=== PATIENT | female | born 1970 | race Caucasian/White ===

== ENCOUNTER 2021-07-10 19:51 | Emergency (ER) | payer OTHER ==
[2021-07-10] MEDS ORDERED: Dextrose 50% Abboject 50 ML SYRINGE ONE (20:08)
[2021-07-10 20:13] LABS: #Eosinphils 0.1 10x3/uL (0.0-0.5); #Neutrophils 3.6 10x3/uL (1.5-8.4); %Basophils 0.6 % (0.0-2.0); %Eosinophils 1.4 % (0.0-6.0); %Lymphocytes 32.5 % (18.0-47.0); %Monocytes 13.7 % (0.0-10.0); %Neutrophils 51.4 % (40.0-75.0); Mean Corpuscular HGB CONC 31.3 g/dL (32.0-36.0); Mean Corpuscular Hemoglobin 30.8 pg (27.0-33.0); Mean Corpuscular Volume 98.5 fl (81.6-98.3); Mean Platelet Volume 10.2 fl (7.4-10.4); Platelet Count 233 10x3/uL (150-450); RBC Distribution Width 16.3 % (11.5-14.5); Red Blood Cell (RBC) Count 3.89 10x6/uL (3.90-5.03); White Blood Cell (WBC) Count 7.1 10x3/uL (3.5-10.5)
[2021-07-10 20:24] LABS: ALT (SGPT) 18 U/L (8-55); AST (SGOT) 19 U/L (5-34); Albumin 4.4 g/dL (3.5-5.0); Alkaline Phosphatase 58 U/L (40-110); Anion Gap 22 mmol/L (10-20); BUN (Urea Nitrogen) 67 mg/dL (9.8-20.1); Bilirubin, Total 0.4 mg/dL (0.2-1.2); Calc. Creatinine Clearance 0 mL/min (70-130); Calcium 10.3 mg/dL (7.8-10.44); Carbon Dioxide 24 mmol/L (22-29); Chloride 99 mmol/L (98-107); Globulin 3.9 g/dL (2.4-3.5); Potassium 4.5 mmol/L (3.5-5.1); Protein, Total 8.3 g/dL (6.0-8.3); Sodium 140 mmol/L (136-145)
[2021-07-10 21:08] LABS: Glucose 43 mg/dL (70-105)
[2021-07-10] MEDS ORDERED: Acetaminophen 500 MG TAB ONE (22:02)
[2021-07-10] MEDS ORDERED: Divalproex Sodium 250 MG (DR) TAB ONE (22:02)
== END 2021-07-10 23:41 | disposition home or self-care (01) ==
LOC: CSHERS 19:51
DX: R56.9 Unspecified convulsions (principal); S00.83XA Contusion of other part of head, initial encounter; E11.40 Type 2 diabetes mellitus with diabetic neuropathy, unspecified; I10 Essential (primary) hypertension; J45.909 Unspecified asthma, uncomplicated; Z87.891 Personal history of nicotine dependence; W19.XXXA Unspecified fall, initial encounter; Z86.73 Personal history of transient ischemic attack (TIA), and cerebral infarction without residual deficits
CPT/HCPCS: 36416; 70450; 71045; 80053; 84484; 85025; 93005; 96374

== ENCOUNTER 2021-07-18 09:35 | Emergency (ER) | payer OTHER ==
[2021-07-18 12:22] LABS: #Eosinphils 0.1 10x3/uL (0.0-0.5); #Monocytes 0.5 10x3/uL (0.0-1.1); #Neutrophils 5.6 10x3/uL (1.5-8.4); %Basophils 0.4 % (0.0-2.0); %Eosinophils 1.4 % (0.0-6.0); %Lymphocytes 18.8 % (18.0-47.0); %Monocytes 6.8 % (0.0-10.0); %Neutrophils 72.2 % (40.0-75.0); Hemoglobin 10.8 g/dL (12.0-15.5); Mean Corpuscular HGB CONC 31.8 g/dL (32.0-36.0); Mean Corpuscular Hemoglobin 30.8 pg (27.0-33.0); Mean Corpuscular Volume 96.9 fl (81.6-98.3); Mean Platelet Volume 9.5 fl (7.4-10.4); Platelet Count 191 10x3/uL (150-450); RBC Distribution Width 14.9 % (11.5-14.5); Red Blood Cell (RBC) Count 3.51 10x6/uL (3.90-5.03); White Blood Cell (WBC) Count 7.7 10x3/uL (3.5-10.5)
[2021-07-18] MEDS ORDERED: traMADol HCl 50 MG TAB ONE (12:24)
[2021-07-18 12:45] LABS: Albumin 4.1 g/dL (3.5-5.0); Alkaline Phosphatase 50 U/L (40-110); Anion Gap 18 mmol/L (10-20); BUN (Urea Nitrogen) 70 mg/dL (9.8-20.1); Bilirubin, Total 0.4 mg/dL (0.2-1.2); Calc. Creatinine Clearance 0 mL/min (70-130); Calcium 8.6 mg/dL (7.8-10.44); Carbon Dioxide 21 mmol/L (22-29); Chloride 102 mmol/L (98-107); Globulin 3.1 g/dL (2.4-3.5); Glucose 67 mg/dL (70-105); Potassium 4.4 mmol/L (3.5-5.1); Protein, Total 7.2 g/dL (6.0-8.3); Sodium 137 mmol/L (136-145)
[2021-07-18 12:46] LABS: ALT (SGPT) 6 U/L (8-55); AST (SGOT) 16 U/L (5-34)
== END 2021-07-18 18:35 ==
LOC: CSHERS 09:35
DX: R56.9 Unspecified convulsions (principal); S00.12XA Contusion of left eyelid and periocular area, initial encounter; S00.11XA Contusion of right eyelid and periocular area, initial encounter; M54.50 Low back pain, unspecified; E11.40 Type 2 diabetes mellitus with diabetic neuropathy, unspecified; I10 Essential (primary) hypertension; Z86.73 Personal history of transient ischemic attack (TIA), and cerebral infarction without residual deficits; J45.909 Unspecified asthma, uncomplicated; Z87.891 Personal history of nicotine dependence; Z79.82 Long term (current) use of aspirin; Z79.899 Other long term (current) drug therapy; W05.0XXA Fall from non-moving wheelchair, initial encounter
CPT/HCPCS: 36416; 70450; 72100; 72125; 80053; 85025

== ENCOUNTER 2021-07-31 10:30 | Emergency (ER) | payer OTHER ==
[2021-07-31] MEDS ORDERED: Bacitracin 1 PK ONE (11:29)
== END 2021-07-31 14:04 | disposition home or self-care (01) ==
LOC: CSHERS 10:30
DX: S00.81XA Abrasion of other part of head, initial encounter (principal); S60.411A Abrasion of left index finger, initial encounter; S60.413A Abrasion of left middle finger, initial encounter; S60.512A Abrasion of left hand, initial encounter; R56.9 Unspecified convulsions; I12.0 Hypertensive chronic kidney disease with stage 5 chronic kidney disease or end stage renal disease; N18.6 End stage renal disease; E11.22 Type 2 diabetes mellitus with diabetic chronic kidney disease; E78.5 Hyperlipidemia, unspecified; Z86.73 Personal history of transient ischemic attack (TIA), and cerebral infarction without residual deficits; I73.9 Peripheral vascular disease, unspecified; Z87.891 Personal history of nicotine dependence; I25.10 Atherosclerotic heart disease of native coronary artery without angina pectoris; W05.0XXA Fall from non-moving wheelchair, initial encounter
CPT/HCPCS: 70450

== ENCOUNTER 2021-08-12 22:02 | Emergency (ER) | payer OTHER ==
[2021-08-12] MEDS ORDERED: Ondansetron ODT 4 MG TAB ONE (22:54)
[2021-08-12 23:03] LABS: Phosphorus 4.3 mg/dL (2.3-4.7)
[2021-08-12 23:09] LABS: ALT (SGPT) 16 U/L (8-55); AST (SGOT) 20 U/L (5-34); Albumin 3.9 g/dL (3.5-5.0); Alkaline Phosphatase 56 U/L (40-110); Anion Gap 17 mmol/L (10-20); BUN (Urea Nitrogen) 45 mg/dL (9.8-20.1); Bilirubin, Total 0.3 mg/dL (0.2-1.2); Calc. Creatinine Clearance 0 mL/min (70-130); Calcium 10.3 mg/dL (7.8-10.44); Carbon Dioxide 24 mmol/L (22-29); Chloride 99 mmol/L (98-107); Globulin 3.7 g/dL (2.4-3.5); Glucose 151 mg/dL (70-105); Magnesium 2.5 mg/dL (1.6-2.6); Potassium 3.9 mmol/L (3.5-5.1); Protein, Total 7.6 g/dL (6.0-8.3); Sodium 136 mmol/L (136-145)
[2021-08-12 23:13] LABS: #Eosinphils 0.2 10x3/uL (0.0-0.5); #Monocytes 0.6 10x3/uL (0.0-1.1); #Neutrophils 3.3 10x3/uL (1.5-8.4); %Basophils 0.5 % (0.0-2.0); %Eosinophils 2.5 % (0.0-6.0); %Lymphocytes 31.1 % (18.0-47.0); %Monocytes 10.6 % (0.0-10.0); %Neutrophils 55.1 % (40.0-75.0); Hemoglobin 10.1 g/dL (12.0-15.5); Mean Corpuscular HGB CONC 32.4 g/dL (32.0-36.0); Mean Corpuscular Hemoglobin 31.6 pg (27.0-33.0); Mean Corpuscular Volume 97.5 fl (81.6-98.3); Mean Platelet Volume 10.4 fl (7.4-10.4); Platelet Count 168 10x3/uL (150-450); RBC Distribution Width 14.4 % (11.5-14.5)
[2021-08-12] MEDS ORDERED: HYDROcodone/Acetaminophen 5/325 mg Tablet ONE (23:39)
== END 2021-08-13 00:40 ==
LOC: CSHERS 22:02
DX: S01.81XA Laceration without foreign body of other part of head, initial encounter (principal); R56.9 Unspecified convulsions; W05.0XXA Fall from non-moving wheelchair, initial encounter; I12.0 Hypertensive chronic kidney disease with stage 5 chronic kidney disease or end stage renal disease; E11.22 Type 2 diabetes mellitus with diabetic chronic kidney disease; N18.6 End stage renal disease; E78.5 Hyperlipidemia, unspecified; I25.10 Atherosclerotic heart disease of native coronary artery without angina pectoris; Z99.2 Dependence on renal dialysis; Z87.891 Personal history of nicotine dependence; Z79.82 Long term (current) use of aspirin; Z79.4 Long term (current) use of insulin
CPT/HCPCS: 12014; 36415; 70450; 80053; 83735; 84100; 85025; 93005; Q0162

== ENCOUNTER 2021-08-15 07:57 | Emergency (ER) | payer OTHER ==
[2021-08-15 08:42] LABS: #Eosinphils 0.1 10x3/uL (0.0-0.5); #Monocytes 0.9 10x3/uL (0.0-1.1); #Neutrophils 6.9 10x3/uL (1.5-8.4); %Basophils 0.4 % (0.0-2.0); %Eosinophils 1.1 % (0.0-6.0); %Lymphocytes 15.5 % (18.0-47.0); %Monocytes 9.8 % (0.0-10.0); %Neutrophils 72.9 % (40.0-75.0); Hemoglobin 10.9 g/dL (12.0-15.5); Mean Corpuscular HGB CONC 31.4 g/dL (32.0-36.0); Mean Corpuscular Hemoglobin 30.6 pg (27.0-33.0); Mean Corpuscular Volume 97.5 fl (81.6-98.3); Mean Platelet Volume 9.8 fl (7.4-10.4); Platelet Count 193 10x3/uL (150-450); RBC Distribution Width 14.6 % (11.5-14.5); Red Blood Cell (RBC) Count 3.56 10x6/uL (3.90-5.03); White Blood Cell (WBC) Count 9.4 10x3/uL (3.5-10.5)
[2021-08-15 08:58] LABS: Acetaminophen Less than 6.0 mcg/mL (10.0-30.0); Alcohol Less than 10 mg/dL (Less than 10); Salicylate Less than 8.0 mg/dL (15.0-30.0)
[2021-08-15 08:59] LABS: ALT (SGPT) 13 U/L (8-55); AST (SGOT) 15 U/L (5-34); Albumin 4.2 g/dL (3.5-5.0); Alkaline Phosphatase 56 U/L (40-110); Anion Gap 19 mmol/L (10-20); BUN (Urea Nitrogen) 59 mg/dL (9.8-20.1); Bilirubin, Total 0.4 mg/dL (0.2-1.2); Calc. Creatinine Clearance 0 mL/min (70-130); Calcium 10.1 mg/dL (7.8-10.44); Carbon Dioxide 24 mmol/L (22-29); Chloride 102 mmol/L (98-107); Globulin 3.6 g/dL (2.4-3.5); Glucose 124 mg/dL (70-105); Potassium 4.1 mmol/L (3.5-5.1); Protein, Total 7.8 g/dL (6.0-8.3); Sodium 141 mmol/L (136-145)
== END 2021-08-15 11:35 | disposition home or self-care (01) ==
LOC: CSHERS 07:57
DX: G40.909 Epilepsy, unspecified, not intractable, without status epilepticus (principal); I12.0 Hypertensive chronic kidney disease with stage 5 chronic kidney disease or end stage renal disease; N18.6 End stage renal disease; I25.10 Atherosclerotic heart disease of native coronary artery without angina pectoris; Z86.73 Personal history of transient ischemic attack (TIA), and cerebral infarction without residual deficits; I73.9 Peripheral vascular disease, unspecified; E78.5 Hyperlipidemia, unspecified; Z87.891 Personal history of nicotine dependence
CPT/HCPCS: 70450; 80053; 80307; 85025; 93005

== ENCOUNTER 2021-09-27 21:02 | Inpatient (IN) | payer OTHER ==
[2021-09-27 22:21] LABS: #Monocytes 0.9 10x3/uL (0.0-1.1); #Neutrophils 6.2 10x3/uL (1.5-8.4); %Basophils 0.4 % (0.0-2.0); %Eosinophils 0.3 % (0.0-6.0); %Lymphocytes 21.5 % (18.0-47.0); %Monocytes 9.9 % (0.0-10.0); %Neutrophils 67.5 % (40.0-75.0); Hemoglobin 9.6 g/dL (12.0-15.5); Mean Corpuscular HGB CONC 31.5 g/dL (32.0-36.0); Mean Corpuscular Hemoglobin 31.5 pg (27.0-33.0); Mean Platelet Volume 10.3 fl (7.4-10.4); Platelet Count 142 10x3/uL (150-450); Red Blood Cell (RBC) Count 3.05 10x6/uL (3.90-5.03); White Blood Cell (WBC) Count 9.2 10x3/uL (3.5-10.5)
[2021-09-27 22:37] LABS: ALT (SGPT) 7 U/L (8-55); AST (SGOT) 13 U/L (5-34); Albumin 3.6 g/dL (3.5-5.0); Alkaline Phosphatase 46 U/L (40-110); Anion Gap 19 mmol/L (10-20); BUN (Urea Nitrogen) 57 mg/dL (9.8-20.1); Bilirubin, Total 0.7 mg/dL (0.2-1.2); Calc. Creatinine Clearance 0 mL/min (70-130); Calcium 9.1 mg/dL (7.8-10.44); Carbon Dioxide 22 mmol/L (22-29); Chloride 101 mmol/L (98-107); Globulin 3.6 g/dL (2.4-3.5); Glucose 159 mg/dL (70-105); Potassium 4.4 mmol/L (3.5-5.1); Protein, Total 7.2 g/dL (6.0-8.3); Sodium 138 mmol/L (136-145)
[2021-09-28] MEDS ORDERED: Cefepime 2 GM VIAL ONE (02:59)
[2021-09-28 04:08] LABS: SARS-CoV-2 NAA Rapid Test DETECTED (NotDetected)
[2021-09-28] MEDS ORDERED: Dexamethasone 10 MG/ML VIAL ONE (04:33)
[2021-09-28] MEDS ORDERED: Senokot S 8.6-50 MG TAB PO PRN (05:08)
[2021-09-28] MEDS ORDERED: Dextrose 5% in Water 1,000 ML IV PRN (05:08)
[2021-09-28] MEDS ORDERED: Calcium Carbonate 500 MG ChewTAB PO PRN (05:08)
[2021-09-28] MEDS ORDERED: Acetaminophen 325 MG TAB PO PRN (05:08)
[2021-09-28] MEDS ORDERED: Dextrose 50% Abboject 50 ML SYRINGE SLOW IVP PRN (05:08)
[2021-09-28] MEDS ORDERED: Ondansetron PF 4 MG/2 ML Vial IVP PRN (05:08)
[2021-09-28] MEDS ORDERED: Guaifenesin DM 100-10/5 ML UDCUP PO PRN (05:08)
[2021-09-28] MEDS ORDERED: Pharmacy to Dose ABX/VANCOMYCIN IVPB PRN (05:24)
[2021-09-28] MEDS ORDERED: Piperacillin/Tazobactam 3.375 GM in Sodium Chloride 0.9% 100 ML IVPB SCH ×5 (06:15→20:00)
[2021-09-28] MEDS ORDERED: HOLD VANCOMYCIN FOR LEVEL >20 FS SCH (06:45)
[2021-09-28] MEDS ORDERED: Vancomycin Sliding Scale 1 EACH FS ONE (06:45)
[2021-09-28] MEDS ORDERED: Vancomycin HCl 750 MG in Sodium Chloride 0.9% 250 ML 250 ML IVPB SCH (06:45)
[2021-09-28] MEDS ORDERED: Vancomycin HCl 1 GM in Sodium Chloride 0.9% 250 ML 250 ML IVPB SCH (06:45)
[2021-09-28] MEDS ORDERED: Vancomycin HCl 1.5 GM in Sodium Chloride 0.9% 250 ML 300 ML IVPB SCH (06:45)
[2021-09-28] MEDS ORDERED: Vancomycin HCl 1.25 GM in Sodium Chloride 0.9% 250 ML 250 ML IVPB SCH (06:45)
[2021-09-28] MEDS ORDERED: Vancomycin 1 GM in Premix Bag 1 BAG IVPB SCH ×2 (06:45→09:00)
[2021-09-28] MEDS: Carvedilol 12.5 MG TAB PO SCH ×2 (08:40→21:31)
[2021-09-28] MEDS: Multivitamin W/ Minerals 1 TAB PO SCH (08:40)
[2021-09-28] MEDS: Atorvastatin Calcium 40 MG TAB PO SCH (08:40)
[2021-09-28] MEDS: Sevelamer Carbonate 800 MG TAB PO SCH ×3 (08:40→21:30)
[2021-09-28] MEDS: Aspirin 81 mg Enteric Coated Tablet PO SCH (08:40)
[2021-09-28 08:44] LABS: Legionella Urinary Ag Negative (Negative); Strep pneumo Urine Ag NEGATIVE (NEGATIVE)
[2021-09-28] MEDS: Lantus 1000 UNITS/10 ML VIAL SC SCH (09:14)
[2021-09-28] MEDS: Heparin 5,000 UNITS/ML VIAL SC SCH ×3 (10:38→21:00)
[2021-09-28 12:21] VITALS: BMI 45.6
[2021-09-28] MEDS: HumaLOG 300 UNITS/3 ML VIAL SC PRN (12:59)
[2021-09-28] MEDS ORDERED: Heparin 10,000 UNITS/ 10 ML VIAL SLOW IVP PRN (13:47)
[2021-09-28] MEDS ORDERED: EPOETIN ALFA-EPBX (ESRD) 3,000 UNIT/ML VIAL IVP SCH (14:00)
[2021-09-28] MEDS ORDERED: Heparin 10,000 UNITS/ 10 ML VIAL CATH SCH (22:00)
[2021-09-29] MEDS: Piperacillin/Tazobactam 3.375 GM in Sodium Chloride 0.9% 100 ML IVPB SCH ×2 (02:00→13:05)
[2021-09-29] MEDS: Atorvastatin Calcium 40 MG TAB PO SCH (08:28)
[2021-09-29] MEDS: Heparin 5,000 UNITS/ML VIAL SC SCH ×3 (08:28→21:55)
[2021-09-29] MEDS: Sevelamer Carbonate 800 MG TAB PO SCH ×3 (08:29→16:56)
[2021-09-29] MEDS: HumaLOG 300 UNITS/3 ML VIAL SC PRN ×4 (08:29→21:22)
[2021-09-29] MEDS: Lantus 1000 UNITS/10 ML VIAL SC SCH (08:29)
[2021-09-29] MEDS: Dexamethasone 4 mg/ml Vial SLOW IVP SCH (08:30)
[2021-09-29] MEDS: Aspirin 81 mg Enteric Coated Tablet PO SCH (08:30)
[2021-09-29] MEDS: Carvedilol 12.5 MG TAB PO SCH ×2 (08:30→16:56)
[2021-09-29] MEDS: Multivitamin W/ Minerals 1 TAB PO SCH (08:30)
[2021-09-29 10:18] LABS: #Monocytes 0.5 10x3/uL (0.0-1.1); #Neutrophils 4.1 10x3/uL (1.5-8.4); %Basophils 0.3 % (0.0-2.0); %Eosinophils 0.3 % (0.0-6.0); %Lymphocytes 17.5 % (18.0-47.0); %Monocytes 9.3 % (0.0-10.0); %Neutrophils 72.1 % (40.0-75.0); Hemoglobin 9.2 g/dL (12.0-15.5); Mean Corpuscular HGB CONC 31.8 g/dL (32.0-36.0); Mean Corpuscular Hemoglobin 31.6 pg (27.0-33.0); Mean Corpuscular Volume 99.3 fl (81.6-98.3); Mean Platelet Volume 10.4 fl (7.4-10.4); Platelet Count 148 10x3/uL (150-450); RBC Distribution Width 15.6 % (11.5-14.5); Red Blood Cell (RBC) Count 2.91 10x6/uL (3.90-5.03); White Blood Cell (WBC) Count 5.7 10x3/uL (3.5-10.5)
[2021-09-29 10:31] LABS: Anion Gap 18 mmol/L (10-20); BUN (Urea Nitrogen) 48 mg/dL (9.8-20.1); Calc. Creatinine Clearance 21 mL/min (70-130); Calcium 8.7 mg/dL (7.8-10.44); Carbon Dioxide 22 mmol/L (22-29); Chloride 103 mmol/L (98-107); Glucose 247 mg/dL (70-105); Potassium 4.4 mmol/L (3.5-5.1); Sodium 139 mmol/L (136-145)
[2021-09-29] MEDS ORDERED: Sodium Chloride 0.9% 100 ML ONE (13:01)
[2021-09-30 05:09] LABS: Anion Gap 19 mmol/L (10-20); BUN (Urea Nitrogen) 61 mg/dL (9.8-20.1); Calc. Creatinine Clearance 18 mL/min (70-130); Calcium 8.1 mg/dL (7.8-10.44); Carbon Dioxide 23 mmol/L (22-29); Chloride 100 mmol/L (98-107); Glucose 180 mg/dL (70-105); Sodium 138 mmol/L (136-145)
[2021-09-30 05:15] LABS: Vancomycin, Random 20.8 ug/mL (See Comment)
[2021-09-30] MEDS: Atorvastatin Calcium 40 MG TAB PO SCH (08:34)
[2021-09-30] MEDS: Dexamethasone 4 mg/ml Vial SLOW IVP SCH (08:34)
[2021-09-30] MEDS: Multivitamin W/ Minerals 1 TAB PO SCH (08:34)
[2021-09-30] MEDS: Sevelamer Carbonate 800 MG TAB PO SCH ×3 (08:34→16:46)
[2021-09-30] MEDS: Heparin 5,000 UNITS/ML VIAL SC SCH ×2 (08:34→14:11)
[2021-09-30] MEDS: Carvedilol 12.5 MG TAB PO SCH ×2 (08:34→16:46)
[2021-09-30] MEDS: Aspirin 81 mg Enteric Coated Tablet PO SCH (08:34)
[2021-09-30] MEDS: Lantus 1000 UNITS/10 ML VIAL SC SCH (08:56)
[2021-09-30] MEDS: HumaLOG 300 UNITS/3 ML VIAL SC PRN ×2 (08:56→16:47)
[2021-09-30] MEDS ORDERED: Ventolin HFA Inhaler 60 PUFF INHALER INH PRN (10:36)
[2021-09-30] MEDS ORDERED: Nitroglycerin 0.4 MG TAB (25 Tab Bottle) SL PRN (10:36)
[2021-09-30] MEDS: Acetaminophen/Codeine 30-300mg Tablet PO PRN ×2 (11:13→16:46)
[2021-09-30 13:49] VITALS: BP 107/57; TEMP 97.9
[2021-09-30] MEDS: Calcium Acetate 667 MG CAP PO SCH ×2 (14:11→16:46)
[2021-09-30] MEDS ORDERED: GABAPENTIN 800 MG PO SCH (15:00)
[2021-09-30] MEDS ORDERED: Gabapentin 400 MG CAP PO SCH (15:00)
[2021-09-30] MEDS: Piperacillin/Tazobactam 3.375 GM in Sodium Chloride 0.9% 100 ML IVPB SCH (16:45)
[2021-09-30] MEDS ORDERED: Divalproex Sodium 250 MG (DR) TAB PO SCH (21:00)
[2021-10-01] MEDS ORDERED: Clopidogrel Bisulfate 75 MG TAB PO SCH (09:00)
[2021-10-01] MEDS ORDERED: Furosemide 40 MG TAB PO SCH (09:00)
== END 2021-09-30 17:55 | DRG 177 ==
LOC: CSHERS 21:02 → CSHTELE 09-28 05:47
PROVIDERS: ADMIT Family Medicine; ATTEND Internal Medicine
PROC: 8E0ZXY6 Isolation (ICD-10-PCS; 2021-09-28)
PROC: 5A1D70Z Performance of Urinary Filtration, Intermittent, Less than 6 Hours Per Day (ICD-10-PCS; 2021-09-28)
PROC: 3E0333Z Introduction of Anti-inflammatory into Peripheral Vein, Percutaneous Approach (ICD-10-PCS; principal; 2021-09-29)
DX: U07.1 COVID-19 (principal); J18.1 Lobar pneumonia, unspecified organism; N18.6 End stage renal disease; J96.01 Acute respiratory failure with hypoxia; Z68.42 Body mass index [BMI] 45.0-49.9, adult; I12.0 Hypertensive chronic kidney disease with stage 5 chronic kidney disease or end stage renal disease; E78.5 Hyperlipidemia, unspecified; F41.9 Anxiety disorder, unspecified; G40.909 Epilepsy, unspecified, not intractable, without status epilepticus; D63.1 Anemia in chronic kidney disease; E11.22 Type 2 diabetes mellitus with diabetic chronic kidney disease; E11.65 Type 2 diabetes mellitus with hyperglycemia; F31.9 Bipolar disorder, unspecified; E66.9 Obesity, unspecified; E11.51 Type 2 diabetes mellitus with diabetic peripheral angiopathy without gangrene; E11.40 Type 2 diabetes mellitus with diabetic neuropathy, unspecified; Z87.891 Personal history of nicotine dependence; Z79.4 Long term (current) use of insulin; Z89.512 Acquired absence of left leg below knee; Z89.511 Acquired absence of right leg below knee; Z86.73 Personal history of transient ischemic attack (TIA), and cerebral infarction without residual deficits; Z88.8 Allergy status to other drugs, medicaments and biological substances; Z79.82 Long term (current) use of aspirin; Z99.2 Dependence on renal dialysis; Z79.899 Other long term (current) drug therapy; Z90.49 Acquired absence of other specified parts of digestive tract; Z98.51 Tubal ligation status
CPT/HCPCS: 36415; 36416; 71045; 71250; 80048; 80053; 80202; 82607; 82746; 83605; 85025; 86140; 87040; 87449; 87899; 90935; 93005; 93306; 94760; G0257; J0692; J1100; J1644; J1815; J2543; J3370; J3490; J7050; U0002

== ENCOUNTER 2022-03-29 07:58 | Inpatient (IN) | payer OTHER ==
[2022-03-29 08:37] LABS: #Eosinphils 0.1 10x3/uL (0.0-0.5); #Monocytes 0.7 10x3/uL (0.0-1.1); #Neutrophils 4.7 10x3/uL (1.5-8.4); %Basophils 0.4 % (0.0-2.0); %Eosinophils 1.4 % (0.0-6.0); %Lymphocytes 21.9 % (18.0-47.0); %Monocytes 9.4 % (0.0-10.0); %Neutrophils 66.5 % (40.0-75.0); Hemoglobin 9.7 g/dL (12.0-15.5); Mean Corpuscular HGB CONC 32.9 g/dL (32.0-36.0); Mean Corpuscular Hemoglobin 32.6 pg (27.0-33.0); Mean Platelet Volume 10.4 fl (7.4-10.4); Platelet Count 157 10x3/uL (150-450); RBC Distribution Width 14.6 % (11.5-14.5); Red Blood Cell (RBC) Count 2.98 10x6/uL (3.90-5.03); White Blood Cell (WBC) Count 7.1 10x3/uL (3.5-10.5)
[2022-03-29 08:56] LABS: Bilirubin Neg (Negative); Blood, Urine 150 (Negative); Clarity Clear (Clear); Glucose, Urine (Dipstick) 250 mg/dL (Negative); Ketone, Urine Negative (Negative); Leukocyte Negative (Negative); Nitrite Negative (Negative); Protein, Urine (Dipstick) 100 mg/dl (Neg-Trace); Urobilinogen Normal mg/dL (Less than 2)
[2022-03-29 09:03] LABS: Bacteria/HPF Rare-Few HPF (None Seen); RBC/HPF 0-3 HPF (0-3); Squamous Epithelial 0-3 HPF (0-3); WBC/HPF 0-3 HPF (0-3)
[2022-03-29 09:05] LABS: ALT (SGPT) 17 U/L (8-55); AST (SGOT) 27 U/L (5-34); Albumin 4.1 g/dL (3.5-5.0); Alkaline Phosphatase 58 U/L (40-110); Anion Gap 20 mmol/L (10-20); BUN (Urea Nitrogen) 65 mg/dL (9.8-20.1); Bilirubin, Total 0.4 mg/dL (0.2-1.2); Calc. Creatinine Clearance 0 mL/min (70-130); Calcium 8.5 mg/dL (7.8-10.44); Carbon Dioxide 27 mmol/L (22-29); Chloride 98 mmol/L (98-107); Estimated GFR 9; Globulin 2.8 g/dL (2.4-3.5); Glucose 196 mg/dL (70-105); Potassium 4.2 mmol/L (3.5-5.1); Protein, Total 6.9 g/dL (6.0-8.3); Sodium 141 mmol/L (136-145)
[2022-03-29 09:42] LABS: SARS-CoV-2 NAA Rapid Test DETECTED (NotDetected)
[2022-03-29] MEDS ORDERED: Lorazepam 2 MG/ML VIAL ONE (13:40)
[2022-03-29] MEDS ORDERED: levETIRAcetam in NS 200 ML ONE (13:42)
[2022-03-29] MEDS ORDERED: hydrALAZINE 20 MG/ML VIAL SLOW IVP PRN (15:17)
[2022-03-29] MEDS ORDERED: Heparin 10,000 UNITS/ 10 ML VIAL SLOW IVP PRN (15:24)
[2022-03-29] MEDS ORDERED: EPOETIN ALFA-EPBX (ESRD) 3,000 UNIT/ML VIAL IVP PRN (15:26)
[2022-03-29] MEDS ORDERED: Pharmacy to Dose UNASYN IVPB PRN (15:29)
[2022-03-29] MEDS ORDERED: Benzonatate 100 MG CAP PO PRN (15:30)
[2022-03-29] MEDS ORDERED: Acetaminophen 650 MG Suppository PR PRN (15:30)
[2022-03-29] MEDS ORDERED: Dextrose 5% in Water 1,000 ML IV PRN (15:34)
[2022-03-29] MEDS ORDERED: HumaLOG 300 UNITS/3 ML VIAL SC PRN (15:34)
[2022-03-29] MEDS ORDERED: Dextrose 50% Abboject 50 ML SYRINGE SLOW IVP PRN (15:34)
[2022-03-29] MEDS: Ampicillin/Sulbactam 1.5 GM in Sodium Chloride 0.9% 100 ML IVPB SCH (16:02)
[2022-03-29 16:10] LABS: Hep B Surf Ag Non-Reactive S/CO (NonReactive)
[2022-03-29 16:12] LABS: HBSAg Index 0.17 S/CO (0-0.99)
[2022-03-29 17:01] VITALS: BMI 48.2
[2022-03-29] MEDS: Sevelamer Carbonate 800 MG TAB PO SCH (18:12)
[2022-03-29] MEDS ORDERED: Ventolin HFA Inhaler 60 PUFF INHALER INH PRN ×2 (18:30)
[2022-03-29] MEDS: Ventolin HFA Inhaler 60 PUFF INHALER INH SCH ×2 (19:00→23:00)
[2022-03-29] MEDS ORDERED: levETIRAcetam in NS 500 MG in Premix Bag 1 BAG IVPB SCH (21:00)
[2022-03-29] MEDS: Atorvastatin Calcium 40 MG TAB PO SCH (21:38)
[2022-03-29] MEDS: Heparin 5,000 UNITS/ML VIAL SC SCH (21:38)
[2022-03-29] MEDS: levETIRAcetam 500 MG/5 ML VIAL SLOW IVP SCH (21:39)
[2022-03-29 22:44] LABS: Hep B Core Total Ab Non-Reactive (NonReactive); Hep B Core Total Index 0.09 S/CO (0-0.79); Hep C IgG Ab Non-Reactive (NonReactive); Hep C Index 0.11 S/CO (0-0.79)
[2022-03-29 22:53] LABS: HBSAB Concentration 172.84 mIU/mL; Hep B Surf AB Reactive (NonReactive)
[2022-03-30] MEDS: Carvedilol 12.5 MG TAB PO SCH ×2 (01:00→09:35)
[2022-03-30] MEDS: Ventolin HFA Inhaler 60 PUFF INHALER INH SCH ×6 (02:30→22:30)
[2022-03-30] MEDS: Ampicillin/Sulbactam 1.5 GM in Sodium Chloride 0.9% 100 ML IVPB SCH ×2 (03:18→16:50)
[2022-03-30 08:01] LABS: Actual Bicarbonate (HCO3v) 27 mEq/L (22-28); Base Excess 3.4 mEq/L (-2.0 to +3.0); Calcium, Ionized (venous) 0.97 mmol/L (1.16-1.32); Chloride (VBG) 98 mmol/L (98-106); Hemoglobin (Hb) 10.4 g/dL (11.7-16.0); Puncture Site Other Site; RapidComm Collect By CBN; Sodium 137.7 mmol/L (133-146); pH (venous) 7.47 (7.32-7.43)
[2022-03-30] MEDS: Heparin 5,000 UNITS/ML VIAL SC SCH ×3 (09:32→20:29)
[2022-03-30] MEDS: levETIRAcetam 500 MG/5 ML VIAL SLOW IVP SCH ×2 (09:34→20:04)
[2022-03-30] MEDS: Furosemide 40 MG TAB PO SCH (09:34)
[2022-03-30] MEDS: Ascorbic Acid 500 mg Chewable Tablet PO SCH (09:34)
[2022-03-30] MEDS: Aspirin 81 mg Enteric Coated Tablet PO SCH (09:34)
[2022-03-30] MEDS: Sevelamer Carbonate 800 MG TAB PO SCH ×3 (09:35→16:50)
[2022-03-30] MEDS: Zinc Sulfate 220 MG CAP PO SCH (09:35)
[2022-03-30] MEDS: Cholecalciferol (Vitamin D3) 400 UNITS TAB PO SCH (09:35)
[2022-03-30] MEDS: Clopidogrel Bisulfate 75 MG TAB PO SCH (09:35)
[2022-03-30] MEDS: Acetaminophen 325 MG TAB PO PRN (11:12)
[2022-03-30 11:21] LABS: #Eosinphils 0.1 10x3/uL (0.0-0.5); #Monocytes 0.6 10x3/uL (0.0-1.1); %Basophils 0.4 % (0.0-2.0); %Eosinophils 1.1 % (0.0-6.0); %Lymphocytes 20.1 % (18.0-47.0); %Monocytes 8.5 % (0.0-10.0); %Neutrophils 69.3 % (40.0-75.0); Hemoglobin 9.8 g/dL (12.0-15.5); Mean Corpuscular HGB CONC 31.2 g/dL (32.0-36.0); Mean Corpuscular Hemoglobin 31.6 pg (27.0-33.0); Mean Corpuscular Volume 101.3 fl (81.6-98.3); Mean Platelet Volume 10.1 fl (7.4-10.4); Platelet Count 168 10x3/uL (150-450); RBC Distribution Width 14.4 % (11.5-14.5); White Blood Cell (WBC) Count 7.2 10x3/uL (3.5-10.5)
[2022-03-30] MEDS: HumaLOG 300 UNITS/3 ML VIAL SC PRN ×2 (11:22→16:52)
[2022-03-30 11:33] LABS: ALT (SGPT) 44 U/L (8-55); AST (SGOT) 73 U/L (5-34); Alkaline Phosphatase 42 U/L (40-110); Anion Gap 13 mmol/L (10-20); BUN (Urea Nitrogen) 36 mg/dL (9.8-20.1); Bilirubin, Total 0.5 mg/dL (0.2-1.2); Calc. Creatinine Clearance 28 mL/min (70-130); Calcium 9.3 mg/dL (7.8-10.44); Carbon Dioxide 29 mmol/L (22-29); Cardiac Risk 2.2 (Less than 4.5); Chloride 93 mmol/L (98-107); Cholesterol 112 mg/dl (< 200 Desired); Estimated GFR 12; Globulin 3.2 g/dL (2.4-3.5); Glucose 256 mg/dL (70-105); HDL Cholesterol 52 mg/dL (>60 Neg Risk); LDL Cholesterol, Calculated 36 mg/dL; Magnesium 2.3 mg/dL (1.6-2.6); Phosphorus 4.3 mg/dL (2.3-4.7); Potassium 3.9 mmol/L (3.5-5.1); Protein, Total 7.2 g/dL (6.0-8.3); Sodium 131 mmol/L (136-145); Triglycerides 122 mg/dL (Less than 150)
[2022-03-30] MEDS ORDERED: GABAPENTIN 800 MG PO SCH (15:00)
[2022-03-30 16:50] LABS: Hemoglobin A1c 7.6 % (4.0-6.0)
[2022-03-30] MEDS: Mometasone/Formoterol 60 PUFF AER INH SCH (18:50)
[2022-03-30] MEDS: Atorvastatin Calcium 40 MG TAB PO SCH (20:05)
[2022-03-31] MEDS: Carvedilol 12.5 MG TAB PO SCH ×3 (00:22→21:24)
[2022-03-31] MEDS: Ventolin HFA Inhaler 60 PUFF INHALER INH SCH ×6 (02:30→22:30)
[2022-03-31] MEDS: Ampicillin/Sulbactam 1.5 GM in Sodium Chloride 0.9% 100 ML IVPB SCH ×2 (03:15→17:17)
[2022-03-31 04:58] LABS: #Eosinphils 0.1 10x3/uL (0.0-0.5); #Monocytes 0.6 10x3/uL (0.0-1.1); #Neutrophils 3.5 10x3/uL (1.5-8.4); %Basophils 0.6 % (0.0-2.0); %Eosinophils 1.6 % (0.0-6.0); %Lymphocytes 30.5 % (18.0-47.0); %Monocytes 9.9 % (0.0-10.0); %Neutrophils 56.9 % (40.0-75.0); Mean Corpuscular HGB CONC 31.3 g/dL (32.0-36.0); Mean Corpuscular Hemoglobin 31.6 pg (27.0-33.0); Mean Corpuscular Volume 101.1 fl (81.6-98.3); Mean Platelet Volume 9.8 fl (7.4-10.4); Platelet Count 147 10x3/uL (150-450); RBC Distribution Width 14.3 % (11.5-14.5); Red Blood Cell (RBC) Count 2.85 10x6/uL (3.90-5.03); White Blood Cell (WBC) Count 6.2 10x3/uL (3.5-10.5)
[2022-03-31 05:14] LABS: ALT (SGPT) 45 U/L (8-55); AST (SGOT) 52 U/L (5-34); Albumin 3.7 g/dL (3.5-5.0); Alkaline Phosphatase 45 U/L (40-110); Anion Gap 17 mmol/L (10-20); BUN (Urea Nitrogen) 50 mg/dL (9.8-20.1); Bilirubin, Total 0.3 mg/dL (0.2-1.2); Calc. Creatinine Clearance 23 mL/min (70-130); Carbon Dioxide 27 mmol/L (22-29); Chloride 101 mmol/L (98-107); Estimated GFR 9; Glucose 192 mg/dL (70-105); Potassium 3.8 mmol/L (3.5-5.1); Protein, Total 6.7 g/dL (6.0-8.3); Sodium 141 mmol/L (136-145)
[2022-03-31] MEDS: Mometasone/Formoterol 60 PUFF AER INH SCH ×2 (07:05→20:45)
[2022-03-31] MEDS ORDERED: diphenhydrAMINE 25 MG CAP PO SCH (10:00)
[2022-03-31] MEDS: Sevelamer Carbonate 800 MG TAB PO SCH ×3 (12:42→17:17)
[2022-03-31] MEDS ORDERED: Polyethylene Glycol 3350 17 GM Packet PO PRN (12:48)
[2022-03-31] MEDS ORDERED: Polyethylene Glycol 3350 17 GM Packet PO SCH (13:00)
[2022-03-31] MEDS: Clopidogrel Bisulfate 75 MG TAB PO SCH (13:24)
[2022-03-31] MEDS: Furosemide 40 MG TAB PO SCH (13:25)
[2022-03-31] MEDS: Zinc Sulfate 220 MG CAP PO SCH (13:25)
[2022-03-31] MEDS: Aspirin 81 mg Enteric Coated Tablet PO SCH (13:25)
[2022-03-31] MEDS: Gabapentin 300 MG CAP PO SCH (13:25)
[2022-03-31] MEDS: Ascorbic Acid 500 mg Chewable Tablet PO SCH (13:26)
[2022-03-31] MEDS: Cholecalciferol (Vitamin D3) 400 UNITS TAB PO SCH (13:26)
[2022-03-31] MEDS: levETIRAcetam 500 MG/5 ML VIAL SLOW IVP SCH ×2 (13:27→20:59)
[2022-03-31] MEDS: Heparin 5,000 UNITS/ML VIAL SC SCH ×3 (13:27→20:59)
[2022-03-31] MEDS: Acetaminophen/Codeine 30-300mg Tablet PO PRN ×2 (14:07→20:58)
[2022-03-31] MEDS: Senokot S 8.6-50 MG TAB PO SCH (21:24)
[2022-03-31] MEDS: Atorvastatin Calcium 40 MG TAB PO SCH (21:25)
[2022-04-01] MEDS: Ventolin HFA Inhaler 60 PUFF INHALER INH SCH ×6 (02:30→22:30)
[2022-04-01] MEDS: Ampicillin/Sulbactam 1.5 GM in Sodium Chloride 0.9% 100 ML IVPB SCH (04:03)
[2022-04-01] MEDS: Mometasone/Formoterol 60 PUFF AER INH SCH ×2 (07:04→19:10)
[2022-04-01] MEDS: Gabapentin 300 MG CAP PO SCH (09:33)
[2022-04-01] MEDS: levETIRAcetam 500 MG/5 ML VIAL SLOW IVP SCH ×2 (09:33→21:16)
[2022-04-01] MEDS: Ascorbic Acid 500 mg Chewable Tablet PO SCH (09:33)
[2022-04-01] MEDS: Clopidogrel Bisulfate 75 MG TAB PO SCH (09:33)
[2022-04-01] MEDS: Zinc Sulfate 220 MG CAP PO SCH (09:34)
[2022-04-01] MEDS: Furosemide 40 MG TAB PO SCH (09:34)
[2022-04-01] MEDS: Acetaminophen/Codeine 30-300mg Tablet PO PRN ×2 (09:34→21:17)
[2022-04-01] MEDS: Carvedilol 12.5 MG TAB PO SCH ×2 (09:34→21:16)
[2022-04-01] MEDS: Cholecalciferol (Vitamin D3) 400 UNITS TAB PO SCH (09:34)
[2022-04-01] MEDS: Aspirin 81 mg Enteric Coated Tablet PO SCH (09:34)
[2022-04-01] MEDS: Sevelamer Carbonate 800 MG TAB PO SCH ×3 (09:35→16:23)
[2022-04-01] MEDS: Senokot S 8.6-50 MG TAB PO SCH ×2 (09:35→21:16)
[2022-04-01] MEDS: Heparin 5,000 UNITS/ML VIAL SC SCH ×3 (09:35→21:16)
[2022-04-01] MEDS: HumaLOG 300 UNITS/3 ML VIAL SC PRN (13:00)
[2022-04-01] MEDS: Atorvastatin Calcium 40 MG TAB PO SCH (21:16)
[2022-04-01] MEDS: Cefdinir 300 MG CAP PO SCH (21:16)
[2022-04-01] MEDS: diphenhydrAMINE 25 MG CAP PO PRN (22:37)
[2022-04-02] MEDS: Ventolin HFA Inhaler 60 PUFF INHALER INH SCH ×6 (02:30→22:30)
[2022-04-02 05:23] LABS: #Basophils 0.1 10x3/uL (0.0-0.2); #Eosinphils 0.1 10x3/uL (0.0-0.5); #Monocytes 0.9 10x3/uL (0.0-1.1); #Neutrophils 4.4 10x3/uL (1.5-8.4); %Basophils 0.6 % (0.0-2.0); %Eosinophils 1.4 % (0.0-6.0); %Lymphocytes 33.1 % (18.0-47.0); %Monocytes 10.5 % (0.0-10.0); %Neutrophils 53.9 % (40.0-75.0); Mean Corpuscular HGB CONC 32.2 g/dL (32.0-36.0); Mean Corpuscular Hemoglobin 32.3 pg (27.0-33.0); Mean Corpuscular Volume 100.3 fl (81.6-98.3); Mean Platelet Volume 9.7 fl (7.4-10.4); Platelet Count 155 10x3/uL (150-450); RBC Distribution Width 14.4 % (11.5-14.5); White Blood Cell (WBC) Count 8.1 10x3/uL (3.5-10.5)
[2022-04-02 05:28] LABS: Anion Gap 18 mmol/L (10-20); BUN (Urea Nitrogen) 48 mg/dL (9.8-20.1); Calc. Creatinine Clearance 22 mL/min (70-130); Calcium 9.7 mg/dL (7.8-10.44); Carbon Dioxide 26 mmol/L (22-29); Chloride 96 mmol/L (98-107); Estimated GFR 9; Glucose 167 mg/dL (70-105); Sodium 136 mmol/L (136-145)
[2022-04-02] MEDS: Acetaminophen/Codeine 30-300mg Tablet PO PRN ×3 (05:34→22:31)
[2022-04-02] MEDS: HumaLOG 300 UNITS/3 ML VIAL SC PRN ×2 (06:18→19:41)
[2022-04-02] MEDS: Mometasone/Formoterol 60 PUFF AER INH SCH ×2 (07:05→20:10)
[2022-04-02] MEDS: Senokot S 8.6-50 MG TAB PO SCH ×2 (12:20→22:58)
[2022-04-02] MEDS: Cholecalciferol (Vitamin D3) 400 UNITS TAB PO SCH (12:20)
[2022-04-02] MEDS: Sevelamer Carbonate 800 MG TAB PO SCH ×3 (12:20→20:12)
[2022-04-02] MEDS: Clopidogrel Bisulfate 75 MG TAB PO SCH (12:20)
[2022-04-02] MEDS: Ascorbic Acid 500 mg Chewable Tablet PO SCH (12:20)
[2022-04-02] MEDS: Aspirin 81 mg Enteric Coated Tablet PO SCH (12:20)
[2022-04-02] MEDS: Zinc Sulfate 220 MG CAP PO SCH (12:20)
[2022-04-02] MEDS: Carvedilol 12.5 MG TAB PO SCH ×2 (12:20→22:31)
[2022-04-02] MEDS: Cefdinir 300 MG CAP PO SCH ×2 (12:20→22:31)
[2022-04-02] MEDS: Gabapentin 300 MG CAP PO SCH (12:21)
[2022-04-02] MEDS: Furosemide 40 MG TAB PO SCH (12:21)
[2022-04-02] MEDS: Heparin 5,000 UNITS/ML VIAL SC SCH ×4 (12:21→22:32)
[2022-04-02] MEDS: levETIRAcetam 500 MG/5 ML VIAL SLOW IVP SCH ×2 (12:21→22:31)
[2022-04-02] MEDS: Acetaminophen 325 MG TAB PO PRN (13:28)
[2022-04-02] MEDS: diphenhydrAMINE 25 MG CAP PO PRN ×2 (13:43→22:30)
[2022-04-02] MEDS: Atorvastatin Calcium 40 MG TAB PO SCH (22:58)
[2022-04-03] MEDS: Ventolin HFA Inhaler 60 PUFF INHALER INH SCH ×4 (02:30→14:46)
[2022-04-03] MEDS: Acetaminophen 325 MG TAB PO PRN (02:40)
[2022-04-03] MEDS: diphenhydrAMINE 25 MG CAP PO PRN (04:39)
[2022-04-03] MEDS: Acetaminophen/Codeine 30-300mg Tablet PO PRN (04:40)
[2022-04-03 04:41] LABS: #Eosinphils 0.1 10x3/uL (0.0-0.5); #Monocytes 0.6 10x3/uL (0.0-1.1); #Neutrophils 4.1 10x3/uL (1.5-8.4); %Basophils 0.5 % (0.0-2.0); %Eosinophils 1.4 % (0.0-6.0); %Lymphocytes 25.9 % (18.0-47.0); %Monocytes 8.5 % (0.0-10.0); %Neutrophils 63.4 % (40.0-75.0); Mean Corpuscular HGB CONC 32.5 g/dL (32.0-36.0); Mean Corpuscular Hemoglobin 32.1 pg (27.0-33.0); Mean Corpuscular Volume 98.7 fl (81.6-98.3); Platelet Count 143 10x3/uL (150-450); RBC Distribution Width 14.2 % (11.5-14.5); Red Blood Cell (RBC) Count 3.12 10x6/uL (3.90-5.03); White Blood Cell (WBC) Count 6.5 10x3/uL (3.5-10.5)
[2022-04-03 04:58] LABS: Anion Gap 23 mmol/L (10-20); BUN (Urea Nitrogen) 60 mg/dL (9.8-20.1); Calc. Creatinine Clearance 19 mL/min (70-130); Calcium 9.7 mg/dL (7.8-10.44); Carbon Dioxide 21 mmol/L (22-29); Chloride 96 mmol/L (98-107); Estimated GFR 7; Glucose 212 mg/dL (70-105); Potassium 4.4 mmol/L (3.5-5.1); Sodium 136 mmol/L (136-145)
[2022-04-03] MEDS: Mometasone/Formoterol 60 PUFF AER INH SCH (08:13)
[2022-04-03] MEDS: Heparin 5,000 UNITS/ML VIAL SC SCH (09:18)
[2022-04-03] MEDS: Sevelamer Carbonate 800 MG TAB PO SCH ×2 (09:18→12:56)
[2022-04-03 12:24] VITALS: BP 105/45; TEMP 98.4
[2022-04-03] MEDS: Senokot S 8.6-50 MG TAB PO SCH (12:56)
[2022-04-03] MEDS: Ascorbic Acid 500 mg Chewable Tablet PO SCH (12:56)
[2022-04-03] MEDS: Cholecalciferol (Vitamin D3) 400 UNITS TAB PO SCH (12:56)
[2022-04-03] MEDS: Zinc Sulfate 220 MG CAP PO SCH (12:57)
[2022-04-03] MEDS: Aspirin 81 mg Enteric Coated Tablet PO SCH (12:57)
[2022-04-03] MEDS: Carvedilol 12.5 MG TAB PO SCH (12:57)
[2022-04-03] MEDS: Furosemide 40 MG TAB PO SCH (12:57)
[2022-04-03] MEDS: Cefdinir 300 MG CAP PO SCH (12:57)
[2022-04-03] MEDS: levETIRAcetam 500 MG/5 ML VIAL SLOW IVP SCH (12:57)
[2022-04-03] MEDS: Clopidogrel Bisulfate 75 MG TAB PO SCH (12:57)
[2022-04-03] MEDS: Gabapentin 300 MG CAP PO SCH (12:57)
== END 2022-04-03 14:59 | DRG 917 ==
LOC: CSHERS 07:58 → CSHTELE 13:22 → OBSVTOIN 15:43
PROVIDERS: ADMIT Family Medicine; ATTEND Internal Medicine
PROC: 8E0ZXY6 Isolation (ICD-10-PCS; principal; 2022-03-29)
PROC: 5A1D70Z Performance of Urinary Filtration, Intermittent, Less than 6 Hours Per Day (ICD-10-PCS; 2022-04-03)
DX: T42.6X1A Poisoning by other antiepileptic and sedative-hypnotic drugs, accidental (unintentional), initial encounter (principal); N18.6 End stage renal disease; U07.1 COVID-19; G93.41 Metabolic encephalopathy; Z68.42 Body mass index [BMI] 45.0-49.9, adult; E87.1 Hypo-osmolality and hyponatremia; I12.0 Hypertensive chronic kidney disease with stage 5 chronic kidney disease or end stage renal disease; G40.909 Epilepsy, unspecified, not intractable, without status epilepticus; E78.5 Hyperlipidemia, unspecified; E11.22 Type 2 diabetes mellitus with diabetic chronic kidney disease; F41.9 Anxiety disorder, unspecified; F31.9 Bipolar disorder, unspecified; E11.51 Type 2 diabetes mellitus with diabetic peripheral angiopathy without gangrene; D63.1 Anemia in chronic kidney disease; E66.01 Morbid (severe) obesity due to excess calories; E11.42 Type 2 diabetes mellitus with diabetic polyneuropathy; E53.8 Deficiency of other specified B group vitamins; Z66 Do not resuscitate; Z88.8 Allergy status to other drugs, medicaments and biological substances; Z86.73 Personal history of transient ischemic attack (TIA), and cerebral infarction without residual deficits; Z79.82 Long term (current) use of aspirin; Z79.4 Long term (current) use of insulin; Z79.899 Other long term (current) drug therapy; Z89.512 Acquired absence of left leg below knee; Z89.511 Acquired absence of right leg below knee; Z98.890 Other specified postprocedural states; Z90.49 Acquired absence of other specified parts of digestive tract; Z98.51 Tubal ligation status; Z99.2 Dependence on renal dialysis; Y92.9 Unspecified place or not applicable
CPT/HCPCS: 36415; 36416; 70450; 71045; 80048; 80053; 80061; 81003; 81015; 82805; 83036; 83735; 83880; 84100; 84443; 84484; 85025; 86140; 86704; 87040; 87086; 87340; 90935; 93005; 94664; 94760; G0257; G0378; J0295; J1644; J1815; J1953; J2060; J3490; Q5105; U0002